=== PATIENT | female | born 1980 | race Caucasian/White ===

== ENCOUNTER 2020-02-26 13:14 | Emergency (ER) | payer BC, OTHER ==
[~2020-02-26] VITALS: Ht 172.7 cm; Wt 81.4 kg
[2020-02-26] MEDS ORDERED: LIDOCAINE 1% INJ 20 ML 20 ML VIAL ONE (13:21)
[2020-02-26] MEDS ORDERED: L.E.T. SYRINGE 5 ML ONE (13:24)
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
[2020-02-26 13:33] VITALS: BP 123/79
[2020-02-26] MEDS ORDERED: L.E.T. SYRINGE 5 ML TOP ONE (13:45)
[2020-02-26] MEDS ORDERED: LIDOCAINE 1% INJ 20 ML 20 ML VIAL INJ ONE (13:45)
== END 2020-02-26 14:13 | disposition home or self-care (01) ==
LOC: EDUNIT# 13:14 → ER FS 13:17
DX: S01.81XA Laceration without foreign body of other part of head, initial encounter (principal); R40.2142 Coma scale, eyes open, spontaneous, at arrival to emergency department; R40.2252 Coma scale, best verbal response, oriented, at arrival to emergency department; R40.2362 Coma scale, best motor response, obeys commands, at arrival to emergency department; V86.95XA Unspecified occupant of 3- or 4- wheeled all-terrain vehicle (ATV) injured in nontraffic accident, initial encounter
CPT/HCPCS: 12013